=== PATIENT | female | born 2000 | race Caucasian/White ===

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

== ENCOUNTER 2019-01-04 12:07 | Emergency (ER) | payer OTHER ==
--- NOTE | 2019-01-04 12:32 | EDPHY ---
H & P Stated Complaint: Dizzy, feeling shakey, and unwitnessed LOC at home today at approx. 1130. Time Seen by Provider: 01/04/19 12:17 HPI/ROS: Chief Complaint: Possible syncope HPI: 18-year-old woman had an episode this morning after getting out of bed where she became lightheaded, her vision, great and she lost consciousness. She was unresponsive for an unknown amount of time as she was alone. She does not feel that she was unconscious for very long. She woke up on the bathroom floor. She was not incontinent. She did not bite her tongue. She states she woke up pretty quickly and did not feel confused. She called her mom who picked her up and brought her here. This episode has occurred approximately 45 min ago. She does have a history of syncope associated with pain in the past. Also has a history of anxiety. Did have an episode 3 months ago of weight loss abdominal pain which has since resolved. She had extensive workup including CT scanning, endoscopy and laboratory evaluations which were unremarkable. Patient was seen by her OBGYN last week and had a normal exam. She does have an IUD in place. No abdominal pain. She is currently without complaint. ROS: 10 systems were reviewed and were negative except those elements noted in the HPI. PMH: Anxiety Social History: No smoking, no alcohol, no recreational drug use Family History: non-contributory Physical Exam: Gen: Awake, Alert, No Distress HEENT: Nose: no rhinorrhea Eyes: PERRLA, EOMI Mouth: Moist mucosa Neck: Supple, no JVD Chest: nontender, lungs clear to auscultation Heart: S1, S2 normal, no murmur Abd: Soft, non-tender, no guarding Back: no CVA tenderness, no midline tenderness Ext: no edema, non-tender Skin: no rash Neuro: CN II-XII intact, Sensation grossly intact, Strength 5/5 in bilateral upper and lower extremities - Personal History LMP (Females 10-55): IUD In Place Current Tetanus Diphtheria and Acellular Pertussis (TDAP): Yes Tetanus Vaccine Date: within 10 years - Medical/Surgical History Hx Asthma: No Hx Chronic Respiratory Disease: No Hx Diabetes: No Hx Cardiac Disease: No Hx Renal Disease: No Hx Cirrhosis: No Hx Alcoholism: No Hx HIV/AIDS: No Hx Splenectomy or Spleen Trauma: No Other PMH: Gluten intolerance, last year had syncope, GERD, anxiety - Social History Smoking Status: Never smoked Constitutional: Initial Vital Signs Temperature (C) 36.9 C 01/04/19 12:13 Heart Rate 94 01/04/19 12:13 Respiratory Rate 16 01/04/19 12:13 Blood Pressure 136/92 H 01/04/19 12:13 O2 Sat (%) 96 01/04/19 12:13 O2 Delivery Mode Room Air Allergies/Adverse Reactions: metronidazole [From Flagyl] Allergy (Verified 01/04/19 12:15) Pt report hives venom-honey bee [bee venom (honey bee)] Allergy (Verified 01/04/19 12:15) Pt reports hives Home Medications: Medication Instructions Recorded Iud 06/21/17 QUEtiapine FUMARATE [Seroquel 100 06/21/17 mg (*)] Lexapro 01/04/19 Medical Decision Making - Diagnostics EKG Interpretation: ECG time 12:34 p.m., sinus rhythm with a rate of 78, borderline right axis deviation axis, normal intervals, no acute ST or T-wave changes. Impression: Normal ECG. ED Course/Re-evaluation: 18-year-old woman with history suggestive of syncope. She has no historical or exam findings suggestive of seizure. She has a normal exam now. She is not . Urinalysis is negative. ECG is normal. Blood sugars normal. She is not acidotic. She is awake alert and appropriate. Patient has been cautioned regarding getting up rapidly in to sit at the bed before she gets up. Will discharge with follow-up with primary care physician. - Data Points Laboratory Results: 01/04/19 01/04/19 12:43 12:22 POC Sodium 141 mEq/L mEq/L (135-145) POC Potassium 3.8 mEq/L mEq/L (3.3-5.0) POC Chloride 106.0 mEq/L mEq/L (97-110) POC Total CO2 26 mEq/L mEq/L (22-31) POC BUN 9 mg/dL mg/dL (7-23) POC Creatinine 0.5 mg/dL L mg/dL (0.6-1.0) POC Glucose 108 mg/dL H mg/dL 89 mg/dL mg/dL (70-100) (70-100) POC Calcium 9.3 mg/dL mg/dL (8.5-10.4) Point of Care Test Results: Chemistry 01/04/19 01/04/19 12:43 12:22 POC Sodium 141 mEq/L mEq/L (135-145) POC Potassium 3.8 mEq/L mEq/L (3.3-5.0) POC Chloride 106.0 mEq/L mEq/L (97-110) POC Total CO2 26 mEq/L mEq/L (22-31) POC BUN 9 mg/dL mg/dL (7-23) POC Creatinine 0.5 mg/dL L mg/dL (0.6-1.0) POC Glucose 108 mg/dL H mg/dL 89 mg/dL mg/dL (70-100) (70-100) POC Calcium 9.3 mg/dL mg/dL (8.5-10.4) Basic Metabolic Panel BMP Collection Date 01/04/19 BMP Collection Time 12:37 Urine Collection Date 01/04/19 Collection Time 12:41 HCG Results Negative Urine Dip Collection Date 01/04/19 Collection Time 12:41 Specific [place] (1.002-1.030) 1.015 PH (5.0-7.5) 7.5 Leukocytes (Negative) Negative Nitrites (Negative) Negative Protein (Negative) Negative Glucose (Negative) Negative Ketones (Negative) Negative Urobilnogen (0.2-1.0 EU) 0.2 Bilirubin (Negative) Negative Blood (Negative) Negative Departure - Departure Disposition: Home, Routine, Self-Care Clinical Impression: Syncope Condition: Good Instructions: Syncope (ED) Additional Instructions: Follow up with primary care physician in 3-4 days for further evaluation. Return to the emergency department for further episodes of fainting, chest pain , palpitations, abdominal pain, or any other concerns. Referrals: NONE *PRIMARY CARE P,. [Primary Care Provider] - As per Instructions
[2019-01-04 13:08] VITALS: BP 128/86
--- NOTE | 2019-01-04 13:41 | CPEKG ---
Test Reason : OPEN Blood Pressure : / mmHG Vent. Rate : 078 BPM Atrial Rate : 078 BPM P-R Int : 142 ms QRS Dur : 098 ms QT Int : 388 ms P-R-T Axes : 030 094 013 degrees QTc Int : 442 ms Sinus rhythm Borderline right axis deviation Confirmed by Landon Mata ([id number]) on 01/04/2019 1:40:59 PM Referred By: Landon Mata Confirmed By:Landon Mata
== END 2019-01-04 13:00 | disposition home or self-care (01) ==
LOC: CED 12:07
DX: R55 Syncope and collapse (principal); F41.9 Anxiety disorder, unspecified
CPT/HCPCS: 80048-ER